=== PATIENT | male | born 1985 | race Caucasian/White ===

== ENCOUNTER 2023-05-08 14:00 | Outpatient (CLI) | payer BC, SELFPAY | END 2023-05-08 14:01 | disposition home or self-care (01) | LOC: RAD 14:01 | PROVIDERS: PCP Physician Assistant; Visit Provider Otolaryngology | DX: G47.33 Obstructive sleep apnea (adult) (pediatric) (principal) | CPT/HCPCS: 93306 ==

== ENCOUNTER 2023-05-16 20:32 | Outpatient (CLI) | payer BC, SELFPAY ==
--- NOTE | 2023-05-28 16:07 | W.PM.SLEEP ---
Sleep Study Details Details Interpreting Provider: Gemma Date of Sleep Study: 05/16/23 Sleep Study Details: STUDY TYPE:? Hospital-based with CPAP titration. This is a titration only study ? BMI:? 35 ORDERING PROVIDER:? Gemma INDICATION:? Previous positive sleep study ? SLEEP SUMMARY:? Total sleep time 430.5 minutes RESPIRATORY SUMMARY:? The overall AHI in this study was 23.4. The patient was titrated to a pressure of 13 included 51.5 minutes of supine REM sleep and decreased AHI to 1. This would be considered a successful titration study. PERIODIC LIMB MOVEMENTS OF SLEEP:? None CARDIAC:? Awake 93, asleep 84. No arrhythmias noted IMPRESSION:? Successful CPAP titration study at a pressure of 13. AHI was decreased to 1, RDI was decreased to 1.5. Recommend initiate CPAP at a pressure of 13. RECOMMENDATION: See impression
== END 2023-05-16 20:33 | disposition home or self-care (01) ==
LOC: SLEEP 20:32
PROVIDERS: PCP Physician Assistant; Visit Provider Otolaryngology
DX: G47.30 Sleep apnea, unspecified (principal); G47.10 Hypersomnia, unspecified; R06.83 Snoring
CPT/HCPCS: 95811

== ENCOUNTER 2025-10-18 04:19 | Emergency (ER) | payer BC, SELFPAY ==
--- OUTSIDE RECORDS SUMMARY | 2025-10-18 04:21 | XMS_ITS | Clinical Summary ---
Author Organization [facility] Address [address] [place] [address] Care Team Providers Care Television Production Technician Name Role Phone Edward Hodges P.A.-C. Primary Care Provider Source Comments Patient records contain information from all sites at [facility]. For routine questions regarding patient records, call [phone] during business hours, M-F 8:00 AM - 5:00 PM Central Time. Record requests for emergency care only can be directed to [phone] at any time.[facility] Allergies Active AllergyReactionsCriticalityNoted DateCommentsPenicillinsOther (see comments)Low03/16/2010 Cerner listed no reactions Unsure of reaction Medications * This document contains information received from the source organization and may not represent a complete record from that organization. MedicationSigDispense QuantityRefillsLast FilledStart DateEnd DateStatus acetaminophen (TYLENOL) 500 mg tablet Take 1,000 mg by mouth every 6 (six) hours as needed for pain. Max 4000 mg in 24 hrsActive tamsulosin (FLOMAX) 0.4 mg 24 hr capsule Take 1 tablet by mouth daily until stone passes, up to 2 weeks. 14 capsule 03/19/2024ctive sertraline (Zoloft) 50 mg tablet Take 1 tablet (50 mg total) by mouth daily. 90 tablet ctive labetaloL 200 mg tablet Take 1 tablet (200 mg total) by mouth 2 (two) times a day. 180 tablet ctive lisinopriL 40 mg tablet Take 1 tablet (40 mg total) by mouth daily. 90 tablet ctive amLODIPine (Norvasc) 10 mg tablet Take 1 tablet (10 mg total) by mouth daily. Patient needs Office Visit for further refills. 90 tablet 5Active atorvastatin (Lipitor) 10 mg tablet Take 1 tablet (10 mg total) by mouth daily. Patient needs Labs for further refills. 90 tablet 5Active Active Problems ProblemNoted DateDiagnosed DateSleep Apnea Ljurmnmavlh20/05/2024Nephrolithiasis 07/26/20216094Jebuggp71/12/2016Cardiomyopathy Hypertrophic Family Ydefdwc9703/01/2016 Hypertensive Chronic Kidney Disease With Stage 1 Through Stage 4 Chronic Kidney Disease, Or Unspecified Chronic Kidney Ivmfybt9109/02/20132710Lopftcejpcwzuz19/27/2013 Polycystic Kidney Nxslwsf7807/17/2013 Resolved Problems ProblemNoted DateDiagnosed DateResolved DateHypertensive Chronic Kidney Disease With Stage 1 Through Stage 4 Chronic Kidney Disease, Or Unspecified Chronic Kidney Igerllz68hronic Kidney Disease Stage 2 Glomerular Filtration Rate 60 To 89hronic Kidney Disease Stage 1 Glomerular Filtration Rate Greater Than 90Hypertension NOS Overview (08/28/2017): HTN [Hypertension] Encounters DateTypeDepartmentCare TocaFdxahckjmog83/18/2025[facility], [facility], [address] [address] Edward Hodges, P.A.-C. Med Pyjcmk5508/06/2025[facility] Medicine, [facility], [address] [address] Edward Hodges, P.A.-C. Med Heaaxw9707/28/2025Orders Only [facility] Edward Hodges, P.A.-C. from Last 3 Months Immunizations ImmunizationAdministration DatesNext YxhZggq43/14/2021,05/04/2011 Family History Medical HistoryRelationNameCommentsHeart attackFatherHyperlipidemia (high cholesterol)FatherHypertensionFatherCardiomyopathySisterRelationNameStatus CommentsFatherSister Social History Tobacco UseTypesPacks/DayYears UsedDateSmoking Tobacco: NeverSmokeless Tobacco: FormerChewAHC UtilitiesAnswerDate RecordedIn the past 12 months has the electric, gas, oil, or water company threatened to shut off services in your home?No01/21/2024Hunger Vital SignAnswerDate RecordedWithin the past 12 months, you worried that your food would run out before you got the money to buymore. Never true01/21/2024Within the past 12 months, the food you bought just didn't last and you didn't have money to get more.Never true01/21/2024RAPARE - TransportationAnswerDate RecordedIn the past 12 months, has lack of transportation kept you from medical appointments or from getting medications?No 01/21/2024In the past 12 months, has lack of transportation kept you from meetings, work, or from getting things needed for daily living?No01/21/2024 Housing StabilityAnswerDate RecordedWhat is your living situation today?I have a steady place to live01/21/2024Sex and Gender InformationValueDate RecordedSex Assigned at TwcgpEawy93/02/2024 8:02 AM CDTLegal PjdQijy1811/23/2016 11:14 AM PHYSICAL EDUCATION INSTRUCTOR Gender DawgouhtWxdd41/08/2017 3:21 PM CSTSexual DmjrlvcsudoNsnmtkij62/08/2017 3:21 PM PHYSICAL EDUCATION INSTRUCTOR Last Filed Vital Signs Vital SignReadingTime TakenCommentsBlood Cdpoevgi463/8609 1:57 PM CDT Gntnw9102 1:57 PM LEPEtfodcvmvye29.8 ??C (96.4 ??F)06/26/2024 1:51 PM CDTRespiratory Xwqd138406/26/2024 1:51 PM CDTOxygen Zauzhsbzrq35%01/24/2024 7:53 AM CDTInhaled Oxygen Concentration--Nskjgz083 kg (229 lb 11.5 oz)06/26/2024 1:51 PM UMWYrxdhv429 cm (5' 8.5)06/26/2024 1:51 PM CDTwith shoes onBody Mass Index 34.4209 1:51 PM CDT Plan of Treatment Health MaintenanceDue DateLast DoneCommentsHIV Zijzeklmw07/17/1987Hepatitis C Kxzptamhs29/17/1987Hepatitis B Vaccines (1 of 3 - 19+ 3-dose series)2005 HPV Vaccines (1 - 3-dose SCDM series)2013Office Visit for Blood Pressure Check / Re-check/epression Screening (Annual PHQ-2) 10/21/2024OVID-19 Vaccine (3 - 2024- season)/, 01/06/2021 Influenza Vaccine (#1)2025Visit: Chronic Disease, age 18+06/26/2025 06/26/2024Lipid (Cholesterol) Yfhyzwkbr56, 08/03/2021, 02/28/2016, Additional history existsDTaP,Tdap,and Td Vaccines (3 - Td or Tdap) , 05/04/2011IPV VaccinesAged OutNo longer eligible based on patient's age to complete this topicPneumococcal vaccine (0-49 years)Aged OutNo longer eligible based on patient's age to complete this topic Procedures Procedure NamePriorityDate/TimeAssociated DiagnosisCommentsLIPID PANEL, SRoutine 11/26/2023 1:58 PM PHYSICAL EDUCATION INSTRUCTOR Hyperlipidemia from Last 3 Months or Most Recently Relevant to Health Maintenance Results * (ABNORMAL) Lipid Panel (11/26/2023 1:58 PM PHYSICAL EDUCATION INSTRUCTOR)ComponentValueRef RangeTest MethodAnalysis TimePerformed AtPathologist DmgwuqfmsVmpcnkdyyotqo750(H)mg/dL 11/26/2023 6:37 PM CSTOWATComment: ----REFERENCE VALUE---- Normal: <150 mg/dL Borderline High: 150-199 mg/dL High: 200-499 mg/dL Very High: > or =500 mg/dL Cholesterol, Jfymn061(H)mg/dL11/26/2023 6:37 PM CSTOWATComment: ----REFERENCE VALUE---- Desirable: < 200 mg/dL Borderline High: 200 - 239 mg/dL High: > or = 240 mg/dL Cholesterol, LDL, Rkqqthzjqe970(H)mg/dL11/26/2023 6:37 PM CSTOWATComment: ----REFERENCE VALUE---- Desirable: <100 mg/dL Above Desirable: 100-129 mg/dL Borderline High: 130-159 mg/dL High: 160-189 mg/dL Very High: >=190 mg/dL ----ADDITIONAL INFORMATION---- LDL cholesterol calculated using the Florian/NIH equation. Cholesterol, HDL33(L)>=40 mg/dL11/26/2023 6:37 PM CSTOWATCholesterol, Non-HDL, Folvaxwlqr526(H)mg/dL11/26/2023 6:37 PM CSTOWATComment: ----REFERENCE VALUE---- Desirable: <130 mg/dL Above Desirable: 130-159 mg/dL Borderline High: 160-189 mg/dL High: 190-219 mg/dL Very High: > or =220 mg/dL Fasting (8 HR or more)No11/26/2023 6:09 PM CSTOWATSpecimen (Source)Anatomical Location / LateralityCollection Method / VolumeCollection TimeReceived TimeBlood (Blood, Venous)11/26/2023 1:58 PM CST11/26/2023 6:09 PM PHYSICAL EDUCATION INSTRUCTOR Narrative Authorizing ProviderResult TypeResult StatusTravis L Carroll MayoLAB BLOOD ADD-ONFinal ResultPerforming OrganizationAddressCity/State/ZIP CodePhone Number [facility] [address] [place] [address], [place] [facility] [facility] [place] [address] [place] [address] from Last 3 Months or Most Recently Relevant to Health Maintenance [place] [id number] Care Teams Team MemberRelationshipSpecialtyStart DateEnd Date Edward Hodges P.A.-C. [address] [place] [phone] [facility] - General04/04/17
--- OUTSIDE RECORDS SUMMARY | 2025-10-18 04:21 | XMS_ITS | Clinical Summary ---
Author Organization [employer] [facility] Address [address] [place] [address] Care Team Providers Care Strategic Intelligence Officer Name Role Phone Edward Hodges Primary Care Provider [phone] Allergies Active AllergyReactionsCriticalityNoted SznyUxbybwhjVjmjvyronqk54/27/2010 Unsure of reaction Medications MedicationSigDispense QuantityRefillsLast FilledStart DateEnd DateStatus acetaminophen (TYLENOL EXTRA STRGTH) 500 mg tablet Take 1,000 mg by mouth every 6 hours if needed for Pain. Max acetaminophen dose: 4000mg in 24 hrs.Active lisinopriL (PRINIVIL; ZESTRIL) 40 mg tablet Take 40 mg by mouth.08/25/2021ctive labetaloL (TRANDATE) 200 mg tablet Take 200 mg by mouth.08/03/2021ctive famotidine (PEPCID) 20 mg tablet Indications:Gastroesophageal reflux disease, unspecified whether esophagitis presentTake 1 Tablet (20 mg) by mouth two times daily. 20 Tablet 01/22/2024ctive Active Problems ProblemNoted DateDiagnosed DateHypertensive oknxmo0907/26/2021KI (acute kidney injury)07/26/20214039Jrvilroyhzjagma21/06/6919Efszzgd24/12/2016Family history of ischemic heart disease and other diseases of the circulatory cgibcf3003/01/2016 Tulmerythokydb98/27/2013Polycystic kidney dptndfg0307/17/2013Family history of xvbifnqbcmxvff35/28/2011HTN (hypertension)05/02/2011 Resolved Problems ProblemNoted DateDiagnosed DateResolved DateAcute appendicitis with localized tgpewrkokbh93 Family History Medical HistoryRelationNameCommentsDiabetesFatherHeart DiseaseFatherHypertension FatherCancerMotherHeart DiseasePaternal GrandfatherStrokePaternal Grandfather RelationNameStatusCommentsFatherDeceasedheart attackMaternal GrandfatherAlive Maternal GrandmotherAliveMotherAlivePaternal GrandfatherDeceasedStrokePaternal GrandmotherDeceasedLiver cancerSisterAlive2 Social History Tobacco UseTypesPacks/DayYears UsedDateSmoking Tobacco: NeverSmokeless Tobacco: FormerAlcohol UseStandard Drinks/WeekCommentsNo0 (1 standard drink = 0.6 oz pure alcohol)Interpersonal SafetyAnswerDate RecordedAre you being hit, kicked, pushed or yelled at (see row info)?No01/22/2024Interpersonal Safety Abuse 12 - 18Not on file01/22/2024Interpersonal Safety Ambulatory VulnerabilityNot on file01/22/2024 Sex and Gender InformationValueDate RecordedSex Assigned at BirthNot on file Legal YmlEqyu6411/03/2012 5:40 AM CSTGender IdentityNot on fileSexual Orientation Not on fileOccupationIndustryJob Start DateJob End Datefactory workNot on file Not on fileNot on file Last Filed Vital Signs Vital SignReadingTime TakenCommentsBlood Bgqndrfn262/9504 6:00 PM CDT Apmxj542501/22/2024 7:00 PM VLNImngfgzblhj28.5 ??C (97.7 ??F)01/22/2024 2:59 PM CDTRespiratory Wknj818201/22/2024 2:59 PM CDTOxygen Askeowqzhm09%01/22/2024 4:35 PM CDTInhaled Oxygen Concentration--Tvxnjn346.1 kg (245 lb)01/22/2024 2:59 PM CJLHwtskt254.3 cm (5' 9)01/22/2024 2:59 PM CDTBody Mass Index36.18001/22/2024 2:59 PM CDT Plan of Treatment Health MaintenanceDue DateLast DoneCommentsTetanus otdmnpf1712/07/1997Depression screening for age 12+1998HIV for age 15-65012/07/2001Hepatitis C screening for age 18-7912/07/2004Hepatitis B series for 19+ (1 of 3 - 19+ 3-dose series) 2005Pneumococcal series for age 6-49 (1 of 2 - PCV)2005HPV series for age 9-45 (1 - 3-dose SCDM series)2013MI (ht and wt on same day) for age 18+Lipids for age 35-440/2COVID-19 vaccine series (3 - 2024- season)504/, 01/06/2021Influenza Vaccine (#1) 2025 Insurance * Guarantor: Nico Youngre TypeRelation to PatientDate of BirthPhone Billing AddressMotor EksofbfVwdf33/17/1986 [address] [place] [id number] * Guarantor: Layla Younger TypeRelation to PatientDate of BirthPhone Billing AddressPersonal/Wrjkqv3605/19/1961 [address] [place] [phone] Advance Directives * Full Code (Latest Code Status on File) Date ActivatedDate NowfjbpghdeUaivjodz29/6/2021 5:57 PM10 1:22 PMQuestion AnswerCommentsCode Status Discussion:* Discussed * Full Code Date ActivatedDate InactivatedComments07/11/2018 6:54 PM07/12/2018 12:02 PM QuestionAnswerCommentsCode Status Discussion:* Not Discussed Care Teams Team MemberRelationshipSpecialtyStart DateEnd Date Edward Hodges PA [address] [facility] [place] [place] [phone] PCP - GeneralPhysician Assistant05/08/23
--- NOTE | 2025-10-18 04:23 | ED_ITS ---
HPI - General Adult General Time Seen by Provider: 04:23 Date Seen: 10/18/25 Chief complaint: Flank Pain Stated complaint: Kidney stones Time Seen by Provider: 10/18/25 04:22 Source: patient, RN notes reviewed and old records reviewed Mode of arrival: ambulatory Limitations: no limitations History of Present Illness HPI narrative: 31-year-old male with history of polycystic kidneys who presents today with flank pain. Patient with history of kidney stones and says this feels the same. Right flank pain and pressure with urinary frequency. No hematuria, no dysur ia, no fevers or chills, no nausea vomiting. Has taken Tylenol with improvement of pain, cannot take ibuprofen due to chronic kidney disease. Related Data Home Medications ?Medication ?Instructions ?Recorded ?Confirmed lisinopril 40 mg tablet 40 mg PO DAILY 02/07/2309/21 potassium citrate 10 mEq (1,080 1,080 meq PO BID 02/0710/18/25 mg) tablet,extended release amlodipine 10 mg tablet 10 mg PO DAILY 10/18/2509/21 atorvastatin 10 mg tablet 10 mg PO DAILY 10/18/2509/21 labetalol 200 mg tablet 200 mg PO BID 10/18/2510/18 Previous Rx's ?Medication ?Instructions ?Recorded tamsulosin 0.4 mg capsule 0.4 mg PO DAILY #14 caps Allergies Allergy/AdvReac Type Severity Reaction Status Date / Time Penicillins Allergy Unknown Verified 06/06/23 13:13 [facility] PFS Social History Smoking Status: Never smoker How often do you have a drink containing alcohol: never AUDIT-C Alcohol total score: 0 Non-prescribed substance use: denies use service: No Exam Narrative: Exam Narrative: General: Well-developed and well-nourished, no acute distress Head: Atraumatic and normocephalic Eyes: Pupils are equal reactive, extraocular motions intact, conjunctiva clear ENT: External nose and ears are normal, posterior pharynx without erythema or exudate Neck: No midline cervical tenderness, full spontaneous range of motion the neck, trachea midline, no adenopathy Heart: Regular rate and rhythm no murmurs or thrills Lungs: Clear to auscultation bilaterally without wheezes or crackles Abdomen: Soft, nontender, nondistended with active bowel sounds Musculoskeletal: No tenderness, deformity, or edema Neurologic: Awake, alert, and oriented x3, no gross focal neurologic deficits, cranial nerves intact as tested Psych: Mood and affect are appropriate Skin: No rashes Const: Vital Signs, click to edit/add: Vital Signs - 24 hr 10/18/25 04:42 Temperature 97.8 F Pulse Rate [Pulse Oximeter] 102 H Respiratory Rate 16 Blood Pressure [Ri ght Forearm] 178/111 H Pulse Oximetry 97 Oxygen Delivery Me thod Room Air Course Course ED Course: Additional records reviewed: June 2024 which was a comprehensive visit addressing hypertrophic cardiomyopathy, chronic kidney disease. Most recent labs from January 2024 with creatinine 1.17. Additional history from: None Care impacted by: Chronic kidney disease, hypertrophic cardiomyopathy Testing considered but not performed: See ED course Disposition: Home Patient seen examined, presents today with right flank pain. Patient with history of kidney stones and says this feels similar. No fevers or chills, no dysuria, no indication of infection at this time. Discussed medications and treatment. Patient cannot have NSAIDs due to chronic kidney disease and declines oxycodone, he is happy taking Tylenol at home. We discussed CT scan, patient would like to defer this for now. As he has a history of kidney stones and this feels similar prior kidney stones, this is reasonable as long as labs are reassuring. He is requesting Flomax which will be prescribed along with limited number of oxycodone and Zofran, follow-up with urology assuming labs are reassuring. Reevaluation(s) Time of Reevaluation #1: 05:06 Reevaluation #1: Labs independently interpreted by me with normal CBC, creatinine is up a little bit from prior at 1.6, most recent prior was 1.17 but this was from over a year ago and known more recent. If urinalysis does not demonstrate signs of infection, patient is stable for discharge with close outpatient follow-up with primary care and urology Time of Reevaluation #2: 05:11 Reevaluation #2: Urinalysis independently interpreted by me negative for acute findings of infection, no hematuria. Patient is stable for discharge Vital Signs Vital signs: Initial Vital Signs Temperature 97.8 F 10/18/25 04:42 Temperature Source Temporal Artery Scan 10/18/25 04:42 Pulse Rate 102 H 10/18/25 04:42 Pulse Rhythm Regular 10/18/25 04:42 Respiratory Rate 16 10/18/25 04:42 Blood Pressure 178/111 H 10/18/25 04:42 Blood Pressure Mean 133 H 10/18/25 04:42 Blood Pressure Position Sitting 10/18/25 04:42 Pulse Oximetry 97 10/18/25 04:42 Oxygen Delivery Method Room Air 10/18/25 04:42 Vital Signs Temperature 97.8 F 10/18/25 04:42 Pulse Rate 102 H 10/18/25 04:42 Respiratory Rate 16 10/18/25 04:42 Blood Pressure 178/111 H 10/18/25 04:42 Pulse Oximetry 97 10/18/25 04:42 Oxygen Delivery Method Room Air 10/18/25 04:42 Temperature 97.8 F 10/18/25 04:42 Pulse Rate 102 H 10/18/25 04:42 Respiratory Rate 16 10/18/25 04:42 Blood Pressure 178/111 H 10/18/25 04:42 Pulse Oximetry 97 10/18/25 04:42 Oxygen Delivery Method Room Air 10/18/25 04:42 Medications Administered Medications: Discontinued Medications Generic Name Dose Route Start Last Admin Trade Name Freq PRN Reason Stop Dose Admin Tamsulosin HCl 0.4 mg 10/18/25 04:31 10/18/25 04:47 Tamsulosin Hcl 0.4 Mg Capsule PO 10/18/25 04:32 0.4 mg ONCE ONE Administration Medical Decision Making Lab Data Labs: Lab Results 10/18/25 10/18/25 Range/Units 04:35 04:40 WBC 10.54 (4.50-11.00) K/uL RBC 4.85 (4.30-5.90) m/uL Hgb 14.6 (13.5-17.5) gm/dL Hct 46.1 (37.0-53.0) % MCV 95 (80-100) fL MCH 30 (26-34) pg MCHC 32 (32-36) gm/dL RDW Coeff of Jazmin 12.3 (11.5-15.5) % Plt Count 328 (140-440) K/uL Neut % (Auto) 78.7 H (42.0-72.0) % Lymph % (Auto) 13.9 L (20-44) % [place] % (Auto) 4.7 (0.0-11.0) % Eos % (Auto) 2.3 (0.0-7.0) % Baso % (Auto) 0.2 (0.0-3.0) % Neut # (Auto) 8.30 H (1.7-7.0) K/uL Lymph # (Auto) 1.50 (0.90-2.90) K/uL [place] # (Auto) 0.50 (0.00-0.90) K/UL Eos # (Auto) 0.24 (0.00-0.50) K/uL Baso # (Auto) 0.02 (0.00-0.30) K/uL Abs Immat Gran (auto) 0.02 (0.00-0.30) K/uL Imm/Tot Granulo (auto) 0.2 % Sodium 136 (135-149) mmol/L Potassium 4.8 (3.6-5.1) mmol/L Chloride 104 (96-114) mmol/L Carbon Dioxide 20 (20-32) mmol/L Anion Gap 12 (7-15) mEq/L BUN 26 H (5-24) mg/dL Creatinine 1.6 H (0.5-1.5) mg/dL Estimated Creat Clear 60.56 Estimated GFR 56 ml/min Glucose 194 H (60-115) mg/dL Calcium 9.9 (8.4-10.6) mg/dL Urine Color Yellow (Yellow) Urine Appearance Clear (Clear) Urine pH 5.5 (5.0-8.5) Ur Specific [place] >= 1.030 (1.000-1.030) Urine Protein Trace A (Negative) Urine Glucose (UA) Trace A (Negative) Urine Ketones Negative (Negative) Urine Blood Negative (Negative) Urine Nitrite Negative (Negative) Urine Bilirubin Negative (Negative) Urine Urobilinogen 0.2 (0.2-1.0) Ur Leukocyte Esterase Negative (Negative) Urine RBC 0-2 (0-2) Urine WBC 0-2 (0-5) Ur Squamous Epith Cells Few (None-Few) Urine Bacteria None (None) Discharge Plan Discharge Clinical Impression: Renal colic, H/O renal calculi Patient Disposition: Home, Self-Care Condition: Stable Instructions: Kidney Stones (ED), Renal Colic (ED) Additional Instructions: Take Flomax as prescribed. Continue Tylenol. Follow-up with your urologist in 5-7 days if continued to have pain. Pqps-sid-rodcoog Dramamine (dimenhydrinate) chewable tablets 25-50 mg every 6 hours to help with flank pain Your kidney function is little bit worse than usual. Make sure you are drinking plenty of fluids and follow-up with your primary care doctor or urologist in the next 5-7 days Activity Level: No Restrictions Discharge Diet: Regular Prescriptions: New tamsulosin 0.4 mg capsule 0.4 mg PO DAILY Qty: 14 0RF No Action lisinopril 40 mg tablet 40 mg PO DAILY potassium citrate 10 mEq (1,080 mg) tablet extended release 1,080 meq PO BID amlodipine 10 mg tablet 10 mg PO DAILY labetalol 200 mg tablet 200 mg PO BID atorvastatin 10 mg tablet 10 mg PO DAILY Follow Up/Referrals: Edward Hodges PA-C [Primary Care Provider, Family Practice] Stand Alone Forms: Pops Info Instructions
[2025-10-18 04:42] VITALS: BP 178/111; PULSE 102; RESP 16; TEMP 36.6; O2SAT 97; BMI 35.0
[2025-10-18 04:46] LABS: Hematocrit* 46.1 % (37.0-53.0); Hemoglobin* 14.6 gm/dL (13.5-17.5); Immature Granulocytes Abs Auto 0.02 K/uL (0.00-0.30); Immature Granulocytes Pct Auto 0.2 %; Mean Corpuscular HGB Conc 32 gm/dL (32-36); Mean Corpuscular Hemoglobin 30 pg (26-34); Mean Corpuscular Volume 95 fL (80-100); RDW Coefficient of Variation % 12.3 % (11.5-15.5); Red Blood Count* 4.85 m/uL (4.30-5.90); White Blood Count* 10.54 K/uL (4.50-11.00)
[2025-10-18 04:47] LABS: Appearance Urine Clear (Clear)
[2025-10-18] MEDS: TAMSULOSIN HCL 0.4 MG CAPSULE PO (04:47)
[2025-10-18 04:50] LABS: Lymphocytes Absolute Auto 1.50 K/uL (0.90-2.90); Slide Review Reflex No
[2025-10-18 04:57] LABS: Chloride* 104 mmol/L (96-114)
[2025-10-18 04:58] LABS: Potassium* 4.8 mmol/L (3.6-5.1); Sodium* 136 mmol/L (135-149)
[2025-10-18 05:01] LABS: Anion Gap 12 mEq/L (7-15); Blood Urea Nitrogen* 26 mg/dL (5-24); Calcium* 9.9 mg/dL (8.4-10.6); Carbon Dioxide* 20 mmol/L (20-32); Creatinine* 1.6 mg/dL (0.5-1.5); Est. Creatinine Clearance* 60.56; Estimated Glomerular Filt Rate 56 ml/min; Glucose* 194 mg/dL (60-115)
[2025-10-18 05:24] VITALS: BP 146/88; PULSE 95; RESP 16; O2SAT 96
== END 2025-10-18 05:27 | disposition home or self-care (01) ==
LOC: ED 04:38
PROVIDERS: Emergency Provider Family Medicine; PCP Physician Assistant
DX: N23 Unspecified renal colic (principal); Z87.442 Personal history of urinary calculi
CPT/HCPCS: 36415; 80048; 81001; 85025; 99284; A9270